=== PATIENT | female | born 1955 | race Asian ===

== ENCOUNTER 2018-10-16 10:49 | Day surgery (SDC) | payer OTHER ==
[2018-10-16] MEDS: LACTATED RINGER'S 1,000 ML IV (06:00)
[~2018-10-16 10:49] MED LIST: SOD CHLORIDE 0.9% 1,000 ML IV
[2018-10-16] MEDS: TROPICAMIDE 1% 3 ML OPH OPER (11:24)
[2018-10-16] MEDS: MOXIFLOXACIN 0.5% 3 ML OPH OPER (11:24)
[2018-10-16] MEDS: CYCLOPENTOLATE 1% 2 ML OPH OPER (11:24)
[2018-10-16] MEDS: PHENYLephrine 2.5% 15 ML OPH OPER (11:25)
[2018-10-16] MEDS: DICLOFENAC 0.1% 2.5 ML OPH OPER (11:25)
[2018-10-16] MEDS: LIDOCAINE 1% (MPF) 10 ML INJ INJ (12:30)
[2018-10-16] MEDS ORDERED: METOCLOPRAMIDE 10 MG INJ IV (12:30)
[2018-10-16] MEDS ORDERED: FENTAnyl 50 MCG/ML VIAL IV ×2 (12:30)
[2018-10-16] MEDS ORDERED: OXYCODONE/ACETAMINOPHEN (5/325) TAB PO (12:30)
[2018-10-16] MEDS ORDERED: hydrALAzine 20 MG INJ IV (12:30)
[2018-10-16] MEDS ORDERED: HYDROmorphONE 1 MG/5 ML IV SYRINGE IV ×2 (12:30)
[2018-10-16] MEDS ORDERED: ONDANSETRON 4 MG INJ IV (12:30)
[2018-10-16] MEDS ORDERED: EPHEDrine SULFATE 50 MG/5 ML SYG IV (12:30)
[2018-10-16] MEDS ORDERED: LABETALOL HCL 20MG INJ IV (12:30)
[2018-10-16] MEDS: TETRACAINE 0.5% 4 ML OPH RIGHT EYE (12:35)
[2018-10-16] MEDS ORDERED: TETRACAINE 0.5% 4 ML OPH (12:46)
[2018-10-16] MEDS ORDERED: LIDOCAINE 1% (MPF) 10 ML INJ (12:46)
[2018-10-16] MEDS ORDERED: TOBRAMYCIN/DEXAMETH 3.5 GM OPH OINT (12:46)
[2018-10-16] MEDS ORDERED: FENTAnyl 50 MCG/ML VIAL (12:57)
[2018-10-16] MEDS ORDERED: MIDAZOLAM 1 MG/ML 2 ML INJ (12:57)
== END 2018-10-16 14:35 | disposition home or self-care (01) ==
LOC: SDS 10:49
DX: H25.11 Age-related nuclear cataract, right eye (principal); E78.5 Hyperlipidemia, unspecified
CPT/HCPCS: 66984

== ENCOUNTER 2019-01-09 06:52 | Day surgery (SDC) | payer OTHER ==
[~2019-01-09 06:52] MED LIST changes: +LACTATED RINGER'S 1,000 ML IV*; -SOD CHLORIDE 0.9% 1,000 ML IV
[2019-01-09] MEDS: MOXIFLOXACIN 0.5% 3 ML OPH OPER (07:57)
[2019-01-09] MEDS: CYCLOPENTOLATE 1% 2 ML OPH OPER (07:57)
[2019-01-09] MEDS: DICLOFENAC 0.1% 2.5 ML OPH (PRE-OP) OPER (07:57)
[2019-01-09] MEDS: TROPICAMIDE 1% 15 ML OPH (PRE OP) OPER (07:58)
[2019-01-09] MEDS: PHENYLephrine 2.5% 15 ML OPH (PRE-OP) OPER (07:58)
[2019-01-09] MEDS ORDERED: FENTAnyl 50 MCG/ML VIAL (09:56)
[2019-01-09] MEDS ORDERED: LABETALOL HCL 20MG INJ (09:59)
[2019-01-09] MEDS ORDERED: EPHEDrine SULFATE 50 MG/5 ML SYG IV (10:00)
[2019-01-09] MEDS ORDERED: MEPERIDINE 25 MG INJ IV (10:00)
[2019-01-09] MEDS ORDERED: FENTAnyl 50 MCG/ML VIAL IV ×3 (10:00)
[2019-01-09] MEDS ORDERED: hydrALAzine 20 MG INJ IV (10:00)
[2019-01-09] MEDS ORDERED: ONDANSETRON 4 MG INJ IV (10:00)
[2019-01-09] MEDS ORDERED: IPRATROPIUM (NEB) 0.5 MG/2.5 ML AMP HHN (10:00)
[2019-01-09] MEDS ORDERED: ALBUTEROL 0.083% (NEB) 2.5 MG/3 ML AMP HHN (10:00)
[2019-01-09] MEDS ORDERED: TRIMETHOBENZAMIDE 100 MG/ML VIAL IM (10:00)
[2019-01-09] MEDS ORDERED: LABETALOL HCL 20MG INJ IV (10:00)
[2019-01-09] MEDS ORDERED: OXYCODONE/ACETAMINOPHEN (5/325) TAB PO ×2 (10:00)
[2019-01-09] MEDS ORDERED: HYDROmorphONE 1 MG/5 ML IV SYRINGE IV ×3 (10:00)
[2019-01-09] MEDS ORDERED: DIPHENHYDRAMINE 50 MG INJ IV (10:00)
[2019-01-09] MEDS ORDERED: MIDAZOLAM 1 MG/ML 2 ML INJ IV (10:00)
[2019-01-09] MEDS: LIDOCAINE 1% (MPF) 10 ML INJ (10:09)
== END 2019-01-09 12:00 | disposition home or self-care (01) ==
LOC: SDS 06:52
DX: H25.12 Age-related nuclear cataract, left eye (principal); E78.5 Hyperlipidemia, unspecified
CPT/HCPCS: 66984